=== PATIENT | male | born 2000 | race African-American/Black ===

== ENCOUNTER 2023-06-08 02:06 | Emergency (ER) | payer OTHER, SELFPAY ==
[2023-06-08] MEDS ORDERED: MAGNESIUM SULFATE 1 gm IVPB 1 GM/100 ML BAG IV ONE (02:37)
[2023-06-08] MEDS ORDERED: CYCLOBENZAPRINE 10 MG TAB ONE (02:37)
[2023-06-08] MEDS ORDERED: NA CHLORIDE 0.9% 0 ML ONE (03:21)
--- NOTE | 2023-06-08 03:29 | EDPHYS ---
Physician Documentation [facility] Name: Tyson Chiu III Age: 22 yrs Sex: Male : 2000 Arrival Date: 06/08/2023 Time: 02:06 Bed 8 Private MD: ED Physician Erickson Duarte HPI: 06/07 03:06 This 22 yrs old Black Male presents to ER via Ambulatory with complaints of Low Back rn Pain. 03:06 The patient presents with pain that is acute. The symptoms are located in the low back. rn The pain radiates to the right leg and left leg. 03:07 Onset: The symptoms/episode began/occurred 3 day(s) ago. Modifying factors: The patient rn symptoms are alleviated by nothing, the patient symptoms are aggravated by any movement. Associated signs and symptoms: Pertinent positives: none Pertinent negatives: abdominal pain, chest pain, fever, hematuria, incontinence, nausea, numbness, tingling, urinary retention, vomiting, weakness. Severity of symptoms: At their worst the symptoms were moderate, in the emergency department the symptoms are unchanged. The patient has not experienced similar symptoms in the past. The patient has not recently seen a physician. Patient reports playing kickball recently, started to have low back pain, feels tight, radiates to both legs. Denies fever or recent illness. No direct trauma or fall. Has never had this before. Denies overexertion or abnormal amount of exercise. Ambulatory. No bowel or bladder issues.. Historical: - Allergies: 02:25 No Known Allergies; ha1 - PMHx: 02:25 None; ha1 - Immunization history:: Adult Immunizations up to date. - Social history:: Smoking status: Reported history of juuling and/or vaping. - Family history:: not pertinent. - Hospitalizations: : No recent hospitalization is reported. ROS: 03:07 Constitutional: Negative for fever, chills, and weight loss, Cardiovascular: Negative rn for chest pain, palpitations, and edema, Respiratory: Negative for shortness of breath, cough, wheezing, and pleuritic chest pain, Abdomen/GI: Negative for abdominal pain, nausea, vomiting, diarrhea, and constipation, Back: Positive for back pain : Negative for injury, bleeding, discharge, and swelling, MS/Extremity: Positive for pain to bilateral hamstrings and posterior legs Skin: Negative for injury, rash, and discoloration, Neuro: Negative for headache, weakness, numbness, tingling, and seizure, Exam: 03:07 Constitutional: This is a well developed, well nourished patient who is awake, alert, rn and in no acute distress. Cardiovascular: Regular rate and rhythm. No pulse deficits. Respiratory: No increased work of breathing, no retractions or nasal flaring. Abdomen/GI: Soft, non-tender Back: No spinal tenderness. MS/ Extremity: Pulses equal, no cyanosis. Neurovascular intact. Full, normal range of motion. Equal circumference. Neuro: Awake and alert, GCS 15 Vital Signs: 02:17 BP 147 / 91; Pulse 76; Resp 17 S; Temp 98.1(O); Pulse Ox 100% on R/A; Weight 81.65 kg; ha1 Height 6 ft. 0 in. ; Pain 7/10; 03:30 BP 145 / 67; Pulse 70; Resp 17 S; Pulse Ox 100% on R/A; ha1 02:17 Body Mass Index 24.41 (81.65 kg, 182.88 cm) ha1 02:17 Pain Scale: Adult ha1 MDM: 02:12 Patient medically screened. rn 03:27 Differential diagnosis: strain, Vascular etiology, muscle spasm, strain, rn rhabdomyolysis. Data reviewed: vital signs, nurses notes, and as a result, I will discharge patient. Counseling: I had a detailed discussion with the patient and/or guardian regarding to return to the emergency department if symptoms worsen or persist or if there are any questions or concerns that arise at home. Refusal of service: The patient/guardian displays adequate decision making capability and despite a detailed discussion of alternatives, benefits, risks, and consequences refuses: CT Scan. ED course: Patient states needs to leave, has to be at work soon, feels much better, understands risks of leaving without further images or evaluation. Patient states will return if anything changes.. 03:28 Response to treatment: the patient's symptoms have markedly improved after treatment. rn 06/07 02:31 Order name: CBC with Diff; Complete Time: 06:08 rn 06/07 02:31 Order name: Basic Metabolic Panel; Complete Time: 06:08 rn 06/07 02:31 Order name: CK; Complete Time: 06:08 rn 06/07 02:31 Order name: IV Start; Complete Time: 02:50 rn Administered Medications: 02:51 Drug: Magnesium Sulfate IVPB 1 grams IVPB once over 1 hrs Route: IVPB; Infused Over: 1 ha1 hrs; Site: right antecubital; 03:28 Follow up: Response: No adverse reaction; Marked relief of symptoms; IV Status: ha1 Completed infusion; IV Intake: 100ml 02:51 Drug: Cyclobenzaprine PO 10 mg PO once Route: PO; ha1 03:27 Follow up: Response: No adverse reaction; Marked relief of symptoms; Pain is decreased ha1 03:27 Not Given (Patient Refused): ns 0.9% 1000 ml IV at 1000 ml once ha1 Disposition Summary: 06/08/23 03:29 Discharge Ordered Notes: Location: Home rn Problem: new rn Symptoms: have improved rn Condition: Stable rn Diagnosis - Low back pain rn - Muscle spasm of back rn Followup: rn - With: Private Physician - When: As needed - Reason: Recheck today's complaints, Re-evaluation by your physician Discharge Instructions: - Discharge Summary Sheet rn - Acute Back Pain, Adult rn - Musculoskeletal Pain rn - Pain Without a Known Cause rn Forms: - Medication Reconciliation Form rn - Thank You Letter rn - Antibiotic cvt rn - Prescription Opioid Use rn - Patient Portal Instructions rn - Leadership Thank You Letter rn Signatures: Dispatcher [employer] Erickson Ashton MD MD rn Ayala, Heidy, RN RN ha1 Corrections: (The following items were deleted from the chart) 02:32 02:32 CBC+H.LAB.BRZ ordered. EDMS EDMS 02:32 02:32 BASIC METABOLIC PANEL+C.LAB.BRZ ordered. EDMS EDMS 02:32 02:32 CREATINE PHOSPHOKINASE+C.LAB.BRZ ordered. EDMS EDMS 03:07 03:07 Angio Aorta For Dissection+CT.RAD.BRZ ordered. EDMS EDMS
--- NOTE | 2023-06-08 03:29 | ER ---
Nurse's Notes [facility] Name: Tyson Chiu III Age: 22 yrs Sex: Male : 2000 Arrival Date: 06/08/2023 Time: 02:06 Bed 8 Private MD: Diagnosis: Low back pain;Muscle spasm of back Presentation: 06/07 02:17 Chief complaint: Patient states: I have pain on my lower back that radiates to my legs. ha1 02:17 Coronavirus screen: Vaccine status: Patient reports being unvaccinated. Ebola Screen: ha1 No symptoms or risks identified at this time. Initial Sepsis Screen: Does the patient meet any 2 criteria? No. Patient's initial sepsis screen is negative. Does the patient have a suspected source of infection? No. Patient's initial sepsis screen is negative. Risk Assessment: Do you want to hurt yourself or someone else? Patient reports no desire to harm self or others. Onset of symptoms was June 06, 2023. 02:17 Method Of Arrival: Ambulatory ha1 02:17 Acuity: CHRISTIANO 4 ha1 Triage Assessment: 02:17 General: Appears uncomfortable, Behavior is calm, cooperative, appropriate for age. ha1 Pain: Complains of pain in coccyx Pain radiates to right leg and left leg Pain currently is 7 out of 10 on a pain scale. Quality of pain is described as aching, throbbing, Pain began 1 day ago. Neuro: Level of Consciousness is awake, alert, obeys commands, Oriented to person, place, time, situation. Cardiovascular: Capillary refill < 3 seconds Patient's skin is warm and dry. Respiratory: Airway is patent Respiratory effort is even, unlabored, Respiratory pattern is regular, symmetrical. GI: No signs and/or symptoms were reported involving the gastrointestinal system. : No signs and/or symptoms were reported regarding the genitourinary system. Derm: Skin is moist, Skin is normal. Musculoskeletal: Circulation, motion, and sensation intact. Range of motion: intact in all extremities, Reports pain in lumbar area. Historical: - Allergies: 02:25 No Known Allergies; ha1 - PMHx: 02:25 None; ha1 - Immunization history:: Adult Immunizations up to date. - Social history:: Smoking status: Reported history of juuling and/or vaping. - Family history:: not pertinent. - Hospitalizations: : No recent hospitalization is reported. Screenin:27 [facility] ED Fall Risk Assessment (Adult) History of falling in the last 3 months, ha1 including since admission No falls in past 3 months (0 pts) Confusion or Disorientation No (0 pts) Intoxicated or Sedated No (0 pts) Impaired Gait No (0 pts) Mobility Assist Device Used No (0 pt) Altered Elimination No (0 pt) Score/Fall Risk Level 0 - 2 = Low Risk Oriented to surroundings, Maintained a safe environment, Educated pt \\T\\ family on fall prevention, incl call for assistance when getting out of bed, Hourly rounding (assess needs \\T\\ fall precautionary measures) done. Abuse screen: Denies threats or abuse. Denies injuries from another. Nutritional screening: No deficits noted. Tuberculosis screening: No symptoms or risk factors identified. Assessment: 02:17 Reassessment: see triage assessment. ha1 03:28 Reassessment: Patient and/or family updated on plan of care and expected duration. Pain ha1 level reassessed. Patient is alert, oriented x 3, equal unlabored respirations, skin warm/dry/pink. requesting to be discharge stated" I have to go to work please tell the Dr. I have to go now" Patient states feeling better. Patient states symptoms have improved. Vital Signs: 02:17 BP 147 / 91; Pulse 76; Resp 17 S; Temp 98.1(O); Pulse Ox 100% on R/A; Weight 81.65 kg; ha1 Height 6 ft. 0 in. ; Pain 7/10; 03:30 BP 145 / 67; Pulse 70; Resp 17 S; Pulse Ox 100% on R/A; ha1 02:17 Body Mass Index 24.41 (81.65 kg, 182.88 cm) ha1 02:17 Pain Scale: Adult ha1 ED Course: 02:10 Patient arrived in ED. gm2 02:12 Erickson Duarte MD is Attending Physician. rn 02:17 Patient has correct armband on for positive identification. Placed in gown. Bed in low ha1 position. Call light in reach. Side rails up X 1. 02:17 Arm band placed on right wrist. ha1 02:25 Triage completed. ha1 02:50 CK Sent. ha1 02:50 Basic Metabolic Panel Sent. ha1 02:50 CBC with Diff Sent. ha1 03:31 Provided Education on: medication administration . ha1 03:31 No provider procedures requiring assistance completed. ha1 03:34 IV discontinued, intact, bleeding controlled, No redness/swelling at site. Pressure cm10 dressing applied. Administered Medications: 02:51 Drug: Magnesium Sulfate IVPB 1 grams IVPB once over 1 hrs Route: IVPB; Infused Over: 1 ha1 hrs; Site: right antecubital; 03:28 Follow up: Response: No adverse reaction; Marked relief of symptoms; IV Status: ha1 Completed infusion; IV Intake: 100ml 02:51 Drug: Cyclobenzaprine PO 10 mg PO once Route: PO; ha1 03:27 Follow up: Response: No adverse reaction; Marked relief of symptoms; Pain is decreased ha1 03:27 Not Given (Patient Refused): ns 0.9% 1000 ml IV at 1000 ml once ha1 Medication: 03:30 VIS not applicable for this client. ha1 Intake: 03:28 IV: 100ml; Total: 100ml. ha1 Outcome: 03:29 Discharge ordered by . rn 03:34 Discharged to home ambulatory, 10 03:34 Condition: good cm10 03:34 Discharge instructions given to patient, Instructed on discharge instructions, follow up and referral plans. Demonstrated understanding of instructions, follow-up care, 03:34 Patient left the ED. cm10 Signatures: Erickson Duarte MD MD rn Ayala, Heidy, RN RN ha1 Mona Gonzales RN RN 10 Stacy Alva [facility]
[2023-06-08 03:34] LABS: Absolute Eosinophils 0.2 K/uL (0-0.5); Absolute Lymphocytes (CBC) 1.8 K/uL (0.7-4.9); Absolute Monocytes 0.5 K/uL (0.1-1.3); Absolute Neutrophil 3.2 K/uL (1.8-8.0); Basophils % 0.7 % (0-1.3); Eosinophils % 3.2 % (0-4.4); Hematocrit 41.9 % (39.6-49.0); Hemoglobin 13.4 g/dL (13.6-17.9); Lymphocytes % 31.8 % (15.3-44.8); MCH 26.9 pg (27.0-35.0); MCHC 32.1 g/dL (32.0-36.0); MCV 83.8 fL (80-100); MPV 8.8 fL (7.6-11.3); Monocytes % 8.4 % (3.3-12.3); Neutrophils % 55.9 % (41.7-73.7); Nucleated Red Blood Cells % 0.1 % (0-0); Platelets 241 thou/uL (152-406)
[2023-06-08 03:55] LABS: Anion Gap 8.4 mEq/L (5.0-15.0); Potassium 3.4 mEq/L (3.5-5.1)
[2023-06-08 10:04] VITALS: BP 145/67; TEMP 98.1; O2SAT 100
== END 2023-06-08 03:34 | disposition home or self-care (01) ==
LOC: ER 02:06
DX: M62.830 Muscle spasm of back (principal)
CPT/HCPCS: 36415; 80048; 82550; 85025; 96365; 99284; J3475; J7030